=== PATIENT | male | born 1955 | race Caucasian/White ===

== ENCOUNTER → 2018-11-03 | Outpatient (CLI) | payer MEDICARE ==
[~2018-11-03] MED LIST: CETI10TA22 PO; FAMO40TA57 PO; IOHEXOL 300 MG/ML 100ML VIAL. IV ONE; LOVA20TA2 PO
--- NOTE | 2018-11-03 13:33 | KCIC ---
CT SOFT TISSUE NECK W/CONTRAST, CT HEAD WO/W CONTRAST Indication: Dysphagia. Infection at the roof of the mouth December 2017. Exposure: One or more of the following individualized dose reduction techniques were utilized for this examination: 1. Automated exposure control 2. Adjustment of the mA and/or kV according to patient size 3. Use of iterative reconstruction technique. Comparison: None are available. Contrast: None Head findings: Posterior fossa is unremarkable. No evidence of acute intracranial hemorrhage or abnormal extra-axial fluid collection. No evidence of mass effect or midline shift. Mild prominence of the extra-axial CSF space, greater in the frontal regions. Visualized orbits are unremarkable. Mild ethmoid mucosal thickening greater on the right. No acute calvarial abnormality. Impression:Negative for acute intracranial hemorrhage or mass effect. Neck findings: Visualized sinuses: Clear Visualized orbits: Unremarkable Vessels: Atherosclerotic calcifications. Grossly patent, distal vertebral arteries difficult to visualize in their entirety. Parotid glands: Unremarkable Submandibular glands: Unremarkable Pharynx/larynx: Patent and midline Tonsils: No appreciable enlargement. Parapharyngeal tissues: Symmetric and unremarkable Lymph nodes: No pathologic enlargement Thyroid: Symmetric Upper thorax: Dense granuloma right upper lobe. Soft tissues: Unremarkable Mandible/maxilla: Unremarkable Cervical spine: Mild degenerative changes of the visualized thoracolumbar spine. IMPRESSION: No evidence of acute abnormality. Electronically signed by: Edmundo Reyes MD (11/03/2018 1:29 PM) [id number]
== END | disposition home or self-care (01) ==
LOC: KCIC CT 10:10
PROVIDERS: ATTEND Otolaryngology
DX: M51.35 Other intervertebral disc degeneration, thoracolumbar region (principal); J84.10 Pulmonary fibrosis, unspecified; I70.0 Atherosclerosis of aorta; Z87.891 Personal history of nicotine dependence
CPT/HCPCS: 70470; 70491; 82565; Q9967

== ENCOUNTER → 2019-03-19 | Outpatient (CLI) | payer MEDICARE ==
[~2019-03-19] MED LIST changes: -IOHEXOL 300 MG/ML 100ML VIAL. IV ONE
--- NOTE | 2019-03-19 13:08 | KCIC ---
EXAM: Chest, 2 views; lumbar spine, 3 views. HISTORY: Pain. COMPARISON: None. FINDINGS: Chest: 2 views the chest are obtained. There is no infiltrate, pleural effusion or pneumothorax. The heart is normal in size. There is a calcified granuloma within the right upper lobe. Lumbar spine: 3 views lumbar spine are obtained. There is mild lumbar levoscoliosis centered at L2. There is minimal retrolisthesis of L4 and L5. There is degenerative endplate remodeling with disc space narrowing, osteophytosis and facet arthropathy at L5-S1. There is aortobiiliac atherosclerotic plaque. IMPRESSION: 1. Degenerative change involving the lumbar spine, primarily at L5-S1. 2. No acute osseous or pulmonary finding. Electronically signed by: Manda Diaz MD (03/19/2019 1:06 PM) [place] [id number]
== END | disposition home or self-care (01) ==
LOC: KCIC 12:06
PROVIDERS: ATTEND Nurse Practitioner Gerontology
DX: M47.817 Spondylosis without myelopathy or radiculopathy, lumbosacral region (principal); M48.07 Spinal stenosis, lumbosacral region; M41.86 Other forms of scoliosis, lumbar region; M43.16 Spondylolisthesis, lumbar region; J84.10 Pulmonary fibrosis, unspecified; I70.0 Atherosclerosis of aorta; M12.88 Other specific arthropathies, not elsewhere classified, other specified site
CPT/HCPCS: 71046; 72100

== ENCOUNTER → 2019-06-22 | Outpatient (CLI) | payer MEDICARE ==
--- NOTE | 2019-06-22 12:40 | KCIC ---
Examination: CT ABDOMEN PELVIS WO CONTRAST History: Left lower quadrant pain, history of diverticulitis Comparison/Correlation: 02/04/2007 CT abdomen and pelvis with IV and oral contrast Findings: Axial images of the abdomen and pelvis were obtained following oral contrast administration only. Sagittal and coronal reformatted images were provided. Visualized lung bases are clear. Right hepatic dome very small to characterize 0.7 cm diameter low-attenuation structure or possibly 2 adjacent smaller structures which appears represent a cyst noted. Calcified granulomas are present involving the spleen. Pancreas and adrenal glands are normal. Left adrenal gland nodule likely representing an adenoma measuring 1.4 cm diameter is stable. Gallbladder fossa is unremarkable. Multiple small, punctate bilateral renal calyceal calculi are present. Right extrarenal pelvis is evident. Left extrarenal pelvis is also noted. No radiopaque ureteral calculi or hydroureter. Urinary bladder is mostly decompressed. Slight thickening of the left perirenal fascia noted. Moderate quantity of stool in the colon noted. No inflammatory change about the cecum. No inflammatory changes about the colon identified. Calcific involvement of the abdominal aorta and iliac arteries noted. No enlarged abdominal or pelvic lymph nodes. No ascites or pelvic free fluid. Significant L5/S1 disc space narrowing is present. Sclerosis involving the right iliac bone at the sacroiliac joint which may represent old infarct or other benign process identified. Mild prostatomegaly is present with the prostate gland measuring 4.6 cm transverse. Impression: Multiple nonobstructive bilateral renal calculi. No inflammatory changes about the colon to suggest diverticulitis or other inflammatory process. PQRS Compliance Statement: One or more of the following individualized dose reduction techniques were utilized for this examination: 1. Automated exposure control 2. Adjustment of the mA and/or kV according to patient size 3. Use of iterative reconstruction technique Electronically signed by: Gerardo Jackson MD (06/22/2019 12:37 PM) [facility]
== END | disposition home or self-care (01) ==
LOC: KCIC CT 10:46
PROVIDERS: ATTEND Nurse Practitioner Gerontology
DX: N20.0 Calculus of kidney (principal); E27.9 Disorder of adrenal gland, unspecified; I70.0 Atherosclerosis of aorta; I70.8 Atherosclerosis of other arteries; N40.0 Benign prostatic hyperplasia without lower urinary tract symptoms; M48.07 Spinal stenosis, lumbosacral region
CPT/HCPCS: 74176

== ENCOUNTER → 2019-12-25 | Day surgery (SDC) | payer MEDICARE ==
[~2019-12-25] MED LIST changes: -CETI10TA22 PO; +CETI10TA24 PO; +CITA20TA9 PO; +DIAZEPAM10 MG PO; +DICL75TA PO; +FINA5TAB4 PO; +HYDROmorphone 2 MG/ML VIAL IV PRN; +IV RINGERS,LACTATED 1000ML 1,000 ML IV ONE; +IV RINGERS,LACTATED 1000ML 1,000 ML IV SCH; +LIDOCAINE 2% PF 5 ML VIAL. ONE; +MORPHINE SULFATE 2 MG/ML VIAL. IV PRN; +PHEN-443 PO; +PREG50CA PO; +PROCHLORPERAZINE 10 MG/2 ML VIAL. IV PRN; +PROPOFOL 20 ML IV ONE; +TAMS0.4C97 PO; +fentaNYL PF VIAL 100 MCG/2 ML VIAL IV PRN
[2019-12-25 08:30] VITALS: BP 134/68
== END | disposition home or self-care (01) ==
LOC: ENDOS 06:41
PROVIDERS: ATTEND Internal Medicine Gastroenterology
DX: R10.32 Left lower quadrant pain (principal); K64.0 First degree hemorrhoids; K57.30 Diverticulosis of large intestine without perforation or abscess without bleeding; D64.9 Anemia, unspecified; F41.9 Anxiety disorder, unspecified; F32.9 Major depressive disorder, single episode, unspecified; J43.9 Emphysema, unspecified; F15.90 Other stimulant use, unspecified, uncomplicated; F17.210 Nicotine dependence, cigarettes, uncomplicated; Z88.0 Allergy status to penicillin; Z72.89 Other problems related to lifestyle; Z88.8 Allergy status to other drugs, medicaments and biological substances
CPT/HCPCS: 45378; J2001; J2704

== ENCOUNTER → 2020-01-20 | Outpatient (CLI) | payer MEDICARE ==
[2019-12-25 08:30] VITALS: BP 134/68
[~2020-01-20] MED LIST changes: -HYDROmorphone 2 MG/ML VIAL IV PRN; -IV RINGERS,LACTATED 1000ML 1,000 ML IV ONE; -IV RINGERS,LACTATED 1000ML 1,000 ML IV SCH; -LIDOCAINE 2% PF 5 ML VIAL. ONE; -MORPHINE SULFATE 2 MG/ML VIAL. IV PRN; -PROCHLORPERAZINE 10 MG/2 ML VIAL. IV PRN; -PROPOFOL 20 ML IV ONE; -fentaNYL PF VIAL 100 MCG/2 ML VIAL IV PRN
--- NOTE | 2020-01-20 14:48 | KCIC ---
EXAM: MRI Pelvis without IV contrast INDICATION: Generalized pelvic pain. Occasional groin pain. TECHNIQUE: Multiplanar, multisequence MRI of the pelvis without IV contrast. COMPARISON: CT abdomen and pelvis with oral only contrast of 06/22/2019 FINDINGS: OSSEOUS STRUCTURES: No evidence of fracture, dislocation, or bone destruction. Marrow signal is within normal limits. Subchondral cystic change present on the right femoral head anteriorly.. ARTICULATIONS: Joint spaces appear maintained. No significant joint effusion. Note that the [id number] is not tailored to assess for labral pathology in detail. TENDONS & MUSCLES: Tendons and tendinous attachments are unremarkable. Muscles are normal without significant muscle edema or atrophy. SCIATIC NERVE: Unremarkable. REGION OF THE FEMORAL NERVE: Unremarkable. OTHER: No soft tissue mass or fluid collection. Visualized pelvic viscera are grossly unremarkable. IMPRESSION: Predominantly right mild hip degenerative changes but but otherwise no findings to explain pelvic pain. Electronically signed by: Rohini Velasco MD (01/20/2020 2:46 PM) [id number]
== END | disposition home or self-care (01) ==
LOC: KCIC MRI 09:13
PROVIDERS: ATTEND Internal Medicine Gastroenterology
DX: M16.11 Unilateral primary osteoarthritis, right hip (principal); R10.2 Pelvic and perineal pain
CPT/HCPCS: 72195

== ENCOUNTER → 2020-01-26 | Outpatient (CLI) | payer MEDICARE ==
[2019-12-25 08:30] VITALS: BP 134/68
[2020-01-26] MEDS: IOHEXOL 240 MG/ML 50ML VIAL. PO ONE (10:05)
[2020-01-26] MEDS: IOHEXOL 300 MG/ML 100ML VIAL. IV ONE (10:05)
--- NOTE | 2020-01-26 10:37 | KCIC ---
CT ABD PELV W/ORAL IV CONTRAST Indication: Lower quadrant pain, history of diverticulitis, constipation Technique: Postcontrast CT imaging was performed of the abdomen and pelvis, multiplanar reconstruction images submitted. Oral contrast was also given. One or more of the following individualized dose reduction techniques were utilized for this examination: 1. Automated exposure control 2. Adjustment of the mA and/or kV according to patient size 3. Use of iterative reconstruction technique. Comparison: June 22, 2019 and February 04, 2007 Findings: There are again a few small right lung base nodules, largest about 0.4 cm right lower lobe image 8 unchanged dating back to 2007 exam. There is no pleural fluid. Hypodense lesion of the right lobe of the liver image 16 about 1 cm in size is new since 2007 exam although internal density measurements more cystlike about 6 Hounsfield units. Another small hypodense lesion superiorly of the liver image 12 about 0.3 cm is smaller than 2007 exam. There are now some splenic granulomas. Gallbladder is present without obvious intraluminal abnormality by CT. There is again accessory spleen. There is again left adrenal nodule up to about 1.5 cm similar compared with 2007 exam. Both kidneys enhance. There is a similar degree of mild left pelviectasis. Mild right pelvocaliectasis has somewhat increased, no ureteral calculus identified. There is small about 0.2 cm superior right renal calculus as seen on the June 2018 exam, some other tiny renal calculi seen previously which may be difficult to visualize on this postcontrast exam. There is slightly lobulated contour of the bilateral kidneys. There is calcified plaque of abdominal aorta and iliac arteries, likely moderate stenosis of the left common iliac artery and likely moderate to severe stenosis of the right common iliac artery. The bowel is not significantly dilated. There is fairly prominent retained stool in the right and transverse colon, to lesser degree of descending and sigmoid colon. There is no free fluid or free air. There is appearance of more focal narrowing of a segment of the small bowel in the right superior pelvis coronal image 17. Bowel is not significantly dilated. Appendix is not confidently identified if still present, no significant pericecal inflammatory type change. There are several small nonspecific retroperitoneal and mesenteric lymph nodes as seen previously. IMPRESSION: 1. There is no significant inflammatory type change. Appearance of more focal narrowing of a segment of small bowel in the right pelvis could be due to peristalsis during exam although would be difficult to superior restriction dislocation. Appendix is not clearly identified so present. There is prominent retained stool greater of the right and transverse colon. 2. There is again small right renal calculus. There is increased mild right renal pelvocaliectasis, ureteral calculus not confidently identified by this exam. 3. There is now small hypodense lesion of the right lobe of the liver not seen on 2007 exam although density measurements more suggestive of cyst, other small hypodense lesion superiorly unchanged. 4. There is stable left adrenal nodule. 5. There are stenoses of the common iliac arteries greater on the right. Electronically signed by: Quinton Kidd MD (01/26/2020 10:34 AM) [id number]
== END ==
LOC: KCIC CT 08:22
PROVIDERS: ATTEND Internal Medicine Gastroenterology
DX: N20.0 Calculus of kidney (principal); K59.00 Constipation, unspecified; R63.4 Abnormal weight loss; I70.8 Atherosclerosis of other arteries; R91.8 Other nonspecific abnormal finding of lung field
CPT/HCPCS: 74177; 82565; Q9966; Q9967

== ENCOUNTER → 2020-04-04 | Outpatient (CLI) | payer MEDICARE ==
[2019-12-25 08:30] VITALS: BP 134/68
[~2020-04-04] MED LIST changes: +BARIUM SULFATE 60% 355 ML SUSP PO ONE; -PREG50CA PO; +PREG50CA91 PO
--- NOTE | 2020-04-05 11:27 | RAD ---
Small bowel follow through. 04.04.20 Indication: Abdominal discomfort. Constipation. Discussion: [employer] image demonstrates no acute abnormality. The patient was given oral barium without issue. Small bowel transit time was approximately 20-30 min. No abnormal dilation, stricture, or evidence of bowel thickening was seen. Fold patterns are within normal limit. Terminal ileum was grossly unremarkable. Fluoro time : 1.1 min DAP: 967.69 [id number] Impression: Normal small bowel series. Electronically signed by: Nhan Randolph MD (04/05/2020 11:23 AM) [id number]
== END | disposition home or self-care (01) ==
LOC: RAD 07:40
PROVIDERS: ATTEND Internal Medicine Gastroenterology
DX: K59.00 Constipation, unspecified (principal); R63.4 Abnormal weight loss
CPT/HCPCS: 74250

== ENCOUNTER → 2020-08-17 | Outpatient (CLI) | payer MEDICARE ==
[2019-12-25 08:30] VITALS: BP 134/68
[~2020-08-17] MED LIST changes: -BARIUM SULFATE 60% 355 ML SUSP PO ONE; -CETI10TA24 PO; +CETI10TA74 PO
--- NOTE | 2020-08-17 12:21 | KCIC ---
PROCEDURE: SHOULDER 2+V LEFT STUDY DATE: 08/17/2020 CLINICAL INDICATION / HISTORY: Reason: Chronic Left shoulder pain, decreased ROM / Spl. Instructions: / History: . TECHNIQUE: AP internal and external rotation views with a Y- view were obtained. COMPARISON: None FINDINGS: No fracture, dislocation or bone destruction is identified. There are no degenerative changes at the left AC joint. Calcifications are seen in relation to the rotator cuff insertion. IMPRESSION: Left shoulder calcific tendinopathy of the rotator cuff. No fracture or malalignment shown. Electronically signed by: Rohini Velasco MD (08/17/2020 12:18 PM) [id number]
== END | disposition home or self-care (01) ==
LOC: KCIC 10:21
PROVIDERS: ATTEND Internal Medicine Rheumatology
DX: M79.7 Fibromyalgia (principal); R20.2 Paresthesia of skin; M75.102 Unspecified rotator cuff tear or rupture of left shoulder, not specified as traumatic
CPT/HCPCS: 73030

== ENCOUNTER → 2020-09-06 | Outpatient (CLI) | payer MEDICARE ==
[2019-12-25 08:30] VITALS: BP 134/68
--- NOTE | 2020-09-06 16:17 | KCIC ---
AP view the pelvis and two-view study of the left hip Clinical indications: Left hip pain. FINDINGS: There is minimal degenerative spurring of the left femoral head with mild joint space narrowing and subchondral sclerosis of the left hip joint. Erosive arthropathy is seen. No acute fracture or dislocation or lytic process is evident. 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 Electronically signed by: Ramiro Zee MD (09/06/2020 4:14 PM) [id number]
--- NOTE | 2020-09-06 16:19 | KCIC ---
Three-view study lumbar spine Clinical indications: Low back pain. Left hip pain. FINDINGS: No compression fracture or discitis or lytic process or anterolisthesis is evident. There is mild degenerative disc space narrowing and degenerative endplate spurring at L4-5. There is moderate to severe degenerative disc space narrowing and moderate degenerative endplate spurring at L5-S1. Mild rotatory levoscoliosis is seen. The transverse processes are intact. IMPRESSION: Degenerative lumbar spondylosis. No acute compression fracture. Electronically signed by: Ramiro Zee MD (09/06/2020 4:16 PM) [id number]
== END ==
LOC: KCIC 10:20
PROVIDERS: ATTEND Internal Medicine Rheumatology
DX: M16.12 Unilateral primary osteoarthritis, left hip (principal); R10.2 Pelvic and perineal pain; M41.87 Other forms of scoliosis, lumbosacral region
CPT/HCPCS: 72100; 73502

== ENCOUNTER → 2020-10-11 | Outpatient (CLI) | payer MEDICARE ==
[2019-12-25 08:30] VITALS: BP 134/68
--- NOTE | 2020-10-11 11:01 | KCIC ---
2 views of left knee for chronic left knee pain. FINDINGS: There is no fracture, dislocation, or acute osseous abnormality identified. No significant degenerative changes. Vascular calcifications are seen in the distal SFA, popliteal, and proximal runoff vessels. IMPRESSION: 1. No acute osseous abnormality. 2. Mild focal atherosclerosis. Electronically signed by: Bulmaro Reed MD (10/11/2020 10:58 AM) [id number]
== END ==
LOC: KCIC 09:26
PROVIDERS: ATTEND Internal Medicine Rheumatology
DX: M25.562 Pain in left knee (principal); G89.29 Other chronic pain; I70.8 Atherosclerosis of other arteries
CPT/HCPCS: 73560

== ENCOUNTER → 2020-12-05 | Outpatient (CLI) | payer MEDICARE ==
[2019-12-25 08:30] VITALS: BP 134/68
--- NOTE | 2020-12-05 10:45 | KCIC ---
EXAM: Cervical spine, 3 views. HISTORY: Pain and stiffness. COMPARISON: None. FINDINGS: 3 views of the cervical spine are obtained. There is minimal retrolisthesis of C3 on C4 and C4 on C5 and C5 on C6. The vertebral bodies are normal in height and the disc spaces are preserved. There is mild multilevel facet arthropathy. There is calcified atherosclerotic plaque involving the c arotid bifurcations. There is a calcified granuloma within the right lung apex. IMPRESSION: 1. Mild multilevel degenerative change. 2. No acute osseous finding. Electronically signed by: Manda Diaz MD (12/05/2020 10:43 AM) [id number]
== END ==
LOC: KCIC 10:14
PROVIDERS: ATTEND Family Medicine
DX: M47.812 Spondylosis without myelopathy or radiculopathy, cervical region (principal); M43.12 Spondylolisthesis, cervical region; I65.23 Occlusion and stenosis of bilateral carotid arteries; J98.4 Other disorders of lung
CPT/HCPCS: 72040

== ENCOUNTER → 2020-12-13 | Outpatient (CLI) | payer MEDICARE ==
[2019-12-25 08:30] VITALS: BP 134/68
--- NOTE | 2020-12-13 09:51 | KCIC ---
MR LUMBAR SPINE WO -[id number] History: Reason: LOW BACK PAIN / Spl. Instructions: / History: Low back pain, left sided. Chronic. P revious surgery 1994. Technique: Multiplanar, multi sequential MR imaging was performed of the lumbar spine. Comparison: None Findings: Mild retrolisthesis L5 on S1. Normal vertebral body height. No fracture. Degenerative endplate edema L5-S1. Postoperative changes right L5 hemilaminectomy. Conus terminates at the normal location. No evidence of nerve root clumping. L1-L2: Small disc bulge. Mild facet arthropathy. No canal or neuroforaminal narrowing. L2-L3: Small disc bulge. Mild facet arthropathy. No canal narrowing. Slight left foraminal disc prot rusion. No neuroforaminal narrowing. L3-L4: Small disc bulge. Moderate facet arthropathy. No canal narrowing. Mild bilateral neuroforamin al narrowing. L4-L5: Disc bulge with central disc protrusion. Moderate facet arthropathy. Subarticular recess narr owing. No canal narrowing. Mild bilateral neuroforaminal narrowing. L5-S1: Retrolisthesis. Right hemilaminectomy. Disc bulge with right subarticular disc extrusion exte nding inferiorly (series 5 image 18). There is compression and displacement of the right descending S 1 nerve root within the subarticular recess. No canal narrowing. Mild bilateral neuroforaminal narrow ing. Impression: 1. Multilevel lumbar spondylosis most prominent L4-5 and L5-S1. 2. L5-S1 right subarticular disc extrusion compressing and displacing the right descending S1 nerve root. Correlate for radiculopathy. 3. L4-L5 central disc protrusion contributing to subarticular recess narrowing with slight abutment of the descending L5 nerve roots, left greater than right. Correlate for radiculopathy. Electronically signed by: Franco Wilder DO (12/13/2020 9:49 AM) [id number]
--- NOTE | 2020-12-13 09:58 | KCIC ---
Examination: MRI of the left shoulder without contrast HISTORY: History of left shoulder pain COMPARISON: None available TECHNIQUE: Multiplanar, multisequence MR imaging of the left shoulder performed. FINDINGS: The long head of the biceps tendon within the bicipital groove. The attachment of the long head the b iceps tendon to the superior labral anchor grossly appears intact. The attachment of subscapularis te ndon grossly appears intact. There is mild increased T2 signal identified about the supraspinatus men sukhjinder status tendon attachment likely mild tendinosis. There is a low intensity focus measuring 1.3 cm at the site of attachment of the supraspinatus tendon to the greater tuberosity likely calcium hydrox yapatite deposition due to calcific tendinosis/tendinitis. Mild increased T2 signal identified in the superior labrum could be a small labral tear. Small should er joint effusion is identified. The acromion is type II. The muscle bulk grossly appears unremarkable. Fat is present within the rota tor interval. Moderate degenerative changes acromioclavicular joint. IMPRESSION: 1. 1.3 cm low intensity focus identified at the site of attachment of the supraspinatus tendon to th e greater tuberosity likely calcium hydroxyapatite deposition due to calcific tendinosis/tendinitis. 2. Mild increased T2 signal identified in the superior labrum could be a small labral tear. 3. Small shoulder joint effusion. 4. Moderate degenerative changes acromioclavicular joint. Electronically signed by: Jun Mathias MD (12/13/2020 9:55 AM) [id number]
== END ==
LOC: KCIC MRI 07:49
PROVIDERS: ATTEND Internal Medicine Rheumatology
DX: M19.012 Primary osteoarthritis, left shoulder (principal); M25.412 Effusion, left shoulder; M47.817 Spondylosis without myelopathy or radiculopathy, lumbosacral region; M51.26 Other intervertebral disc displacement, lumbar region; M48.07 Spinal stenosis, lumbosacral region
CPT/HCPCS: 72148; 73221

== ENCOUNTER → 2020-12-19 | Outpatient (CLI) | payer MEDICARE ==
[2019-12-25 08:30] VITALS: BP 134/68
--- NOTE | 2020-12-19 08:58 | RAD ---
Ultrasound carotid Doppler 12/19/2020 6:57 AM INDICATION: Dysphagia COMPARISON: None available TECHNIQUE: Sonographic imaging of the carotid vasculature was performed utilizing grayscale, color Do ppler and spectral waveform analysis. FINDINGS: (All velocities are measured cm per second) Right carotid: Calcified and noncalcified atheromatous plaque is identified at the right carotid bifu rcation with at least 50 percent grayscale luminal narrowing. Peak systolic velocity: Proximal common carotid artery: 80 Distal common carotid artery: 73 Proximal internal carotid artery: 58 Middle internal carotid artery: 79 Distal internal carotid artery: 64 End-diastolic velocity: 23 External carotid artery: 108 Internal carotid artery/common carotid artery ratio: 0.72-0.98 Vertebral artery: Antegrade flow Left carotid: Calcified atheromatous plaques identified at the left carotid bifurcation with less avery n 50 percent grayscale narrowing. Peak systolic velocity: Proximal common carotid artery: 85 Distal common carotid artery: 83 Proximal internal carotid artery: 77 Middle internal carotid artery: 95 Distal internal carotid artery: 87 End-diastolic velocity: 21 External carotid artery: 96 Internal carotid artery/common carotid artery ratio: 0.85-1.1 Vertebral artery: Antegrade flow IMPRESSION: 1. There is at least 50 percent luminal stenosis involving the right proximal cervical internal carot id artery secondary to calcified and noncalcified atheromatous plaque. No hemodynamically significant stenosis involving the left internal carotid artery. 2. Antegrade flow is identified in the vertebral arteries. 3. Evaluation of the carotid vasculature and measurements for luminal stenosis was performed utilizin g NASCET criteria. Electronically signed by: Radha Goyal MD (12/19/2020 8:50 AM) [id number]
== END ==
LOC: US 06:50
PROVIDERS: ATTEND Family Medicine
DX: I65.23 Occlusion and stenosis of bilateral carotid arteries (principal); R13.10 Dysphagia, unspecified
CPT/HCPCS: 93880

== ENCOUNTER → 2021-01-25 | Outpatient (CLI) | payer MEDICARE ==
[2019-12-25 08:30] VITALS: BP 134/68
[~2021-01-25] MED LIST changes: +ACYC400T PO; +CHOL100013 PO; +CYCL10TA2 PO; +ESZO3TAB28 PO; +FLUT9.9S NS; +IOHEXOL 180 MG/ML 10 ML VIAL. ONE; +IPRA0.2S5 NEB; +LINZESS145 MCG PO; +LUBI8CAP4 PO; +OMEG-117 PO; +POLY17PO29 PO; +PREG-9 PO; +VENTOLIN HFA18 GM INH; +VITA1CAP5 PO; +[UNRECOGNIZED DRUG - OTHER]; +methylPREDNISolone ACETATE 40 MG/ML VIAL. ONE; +methylPREDNISolone ACETATE 80 MG/ML VIAL. ONE
--- NOTE | 2021-01-25 12:26 | PDOC1 ---
INITIAL PAIN CONSULT DATE OF SERVICE: DOS: DATE: 01/25/21 TIME: 12:16 CHIEF COMPLAINT: Chief Complaint: Low back and left lower extremity pain HISTORY OF PRESENT ILLNESS: 66-year-old male presents history of pain for many years per his report at least 10 years, pain in the low back and out worse over the past 1 year without any specific recent injury or accident that he is aware of pain increasing in the low back and left lower extremity rating the posterior gluteus lateral thigh lateral anterior thigh anteromedial thigh medial lower leg and into the top of the foot on the left side worse with walking standing specially with standing sometimes better with walking but only for about a mile and then the pain begins to return patient reports it generally does not awaken her from sleep at night feels better sitting or laying down does not impede his ability to walk significantly but it is starting to over the past 2 months or so with walking patient generally reports he walks from 5 to 7 miles a day has not been able to do this recently because of the pain patient is still walking though 1 to 2 miles a day patient reports is not use any assistive devices reports it does affect his bowel bladder control at times but he has no loss of continence just increased frequency. Patient has had chiropractic treatment in the past does exercise currently walking daily has epidural injections in 1995 no formal physical therapy currently but is doing some stretching on his own. Patient describes the pain in the low back and the leg on the left side is sharp and stabbing throbbing shooting in the leg tingling and aching in the back with tingling in the leg as well as the foot radiating intermittent intensity again worse with activity and standing. Patient rates his disability rating 0-10 10 being worst is a 6 to an 8 on a family home responsibilities self-care and life support activities 5-7 on occupation activity recreation is 8-10 and social activity 7-10; sexual behavior is 8-10 as well. Patient did have an MRI scan of the lumbar spine showing multilevel lumbar spondylosis most prominent at L4-5 and L5-S1 with right subarticular disc extrusion L5-S1 compressing and displacing the right descending S1 nerve root L4-5 showing central disc protrusion contributing subacute recess narrowing with slight abutment of the descending L5 nerve roots left greater than right. PAST MEDICAL HISTORY: PMH: Cigarette smoking, arthritis, arterial sclerosis PREVIOUS SURGERIES: Past Surgical Hx: Lumbar laminectomy 1994 CURRENT MEDICATIONS: Current Meds: Active Scripts Medications Dose Route/Sig Max Daily Dose Days Date Category Dose Instructions Acyclovir 400 Mg Tablet 1 Tab PO BID 01/25/21 Reported Amitiza (Lubiprostone) 8 Mcg Capsule 8 Mcg PO BID 01/25/21 Reported Linzess (Linaclotide) 145 Mcg Capsule 145 Mcg PO DAILY07 01/25/21 Reported Fish Oil 1,200 mg Softgel ([place]-3/Dha/Epa/Fish Oil) 1 Each Capsule.dr 1 Cap PO DAILY 30 01/25/21 Reported Vitamin D3 (Cholecalciferol (Vitamin D3)) 25 Mcg Capsule 25 Mcg PO DAILY 01/25/21 Reported B Complex With Vitamin C (Vitamin B Complex & Vit C No.3) 1 Each Capsule 1 Cap PO DAILYWBKFT 7 01/25/21 Reported Miralax (Polyethylene Glycol 3350) 17 Gm Powd.pack 1 Packet PO DAILY 2 01/25/21 Reported dissolve in water [rosenberg colon ] PRN PRN 01/25/21 Reported Flonase Allergy Relief (Fluticasone Propionate) 9.9 Ml [place].susp 2 Sprays NS DAILY 01/25/21 Reported Lunesta (Eszopiclone) 3 Mg Tablet 1 Tab PO PRN QHS PRN MDD 1 Tablet(s) 30 01/25/21 Reported Ipratropium [place] 0.2 Mg/1 Ml Solution 1 Vial NEB BID PRN 01/25/21 Reported Ventolin Hfa Inhaler (Albuterol Sulfate) 18 Gm Hfa.aer.ad 2 Puff INH Q4HRS 01/25/21 Reported Cyclobenzaprine Hcl 10 Mg Tablet 1 Tab PO QHS PRN 01/25/21 Reported Lyrica (Pregabalin) 75 Mg Capsule 1 Cap PO DAILY 01/25/21 Reported Diclofenac Sodium 75 Mg Tablet.dr 75 Mg PO DAILY 12/25/19 Reported Celexa (Citalopram Hydrobromide) 20 Mg Tablet 20 Mg PO DAILY 12/25/19 Reported Diazepam 10 Mg Tablet 10 Mg PO TID 12/25/19 Reported Flomax (Tamsulosin Hcl) 0.4 Mg Cap.er.24h 0.4 Mg PO DAILY 12/25/19 Reported Finasteride 5 Mg Tablet 5 Mg PO DAILY 12/25/19 Reported Pepcid (Famotidine) 40 Mg Tablet 40 Mg PO HS 11/03/18 Reported Zyrtec (Cetirizine Hcl) 10 Mg Tablet 1 Tab PO DAILY 11/03/18 Reported Lovastatin 20 Mg Tablet 1 Tab PO DAILY 11/03/18 Reported ALLERGIES; Allergies: Coded Allergies: Penicillins (Verified Allergy, Intermediate, 12/25/19) hydroquinone (Verified Allergy, Intermediate, 12/25/19) FAMILY HISTORY: Family Hx: Cancers, dementia, heart disease, arthritis, Alzheimer's SOCIAL HISTORY: Social Hx: Patient quit smoking about 3 months ago previously [id number] history plus, patient use alcohol occasionally once or twice a year does not use any illegal illicit or recreational drugs is single lives locally in [facility] and is currently retired, and is the primary caregiver for his mother. REVIEW OF SYSTEMS: ROS: Positive for those items mentioned in history of present illness, all systems are reviewed, otherwise negative ,and are complete full and well-documented on patient's chart. PHYSICAL EXAM: VS: Blood pressure is 133/66 pulse 50 respirations 18 temperature 97.8 F height is 5 feet 8 inches weight is 143 pounds PE: PHYSICAL EXAMINATION: GENERAL: The patient is awake, alert, oriented, appropriate, very pleasant demeanor HEENT: Shows normocephalic, atraumatic. Extraocular movements are intact and symmetrical. Oral cavity: Mucous membranes moist and pink. Dentition is intact. NECK: Shows anterior throat supple without palpable lymphadenopathy noted. Swallow reflex symmetrical. CHEST: Shows normal on inspection. Breath sounds are clear bilaterally no rales rhonchi or wheezes auscultated. HEART: Shows S1, S2 clear. No murmurs auscultated. ABDOMEN: Soft, nontender, nondistended, flat. No palpable organomegaly is noted. No rebound or guarding demonstrated. BACK: Shows spine grossly in the midline. Normal-appearing cervical lordotic curvature. There is slightly increased thoracic kyphosis, some minor flattening of the lumbar lordotic curvature. Patient has well-healed midline surgical scar in the lumbar distribution. Lumbar paraspinous muscles show symmetrical on inspection, on palpation shows some moderate tenderness diffusely throughout the upper, middle and lower distribution of the paraspinous muscles bilaterally and also into the lower thoracic paraspinous musculature, firm and tender, but without specific trigger points, without radiation of pain. The patient has good rotational motion of the lumbar spine, both laterally as well as extension and flexion without significant difficulty. No tenderness over the spinous processes, sacrum or sacroiliac regions. EXTREMITIES: Lower extremities show deep tendon reflexes 2+ in the patellar and tendo calcaneus tendons. Motor exam is 5 on a scale of 5 with right dorsiflexion, extension, quadriceps and hamstring flexion and 4/5 on the left. Peripheral pulses are 1+ posterior tibial. No peripheral edema is noted bilater ally. Lower extremities are warm and dry to touch, equal in color and appearance. Straight leg raise noted to be negative on the right, left side is positive at approximately 35 degrees but decreased with knee flexion.. Gaenslen's and Duarte's maneuvers are negative bilaterally. The patient is able to stand, stand on his toes,walks with a slight favoring gait favoring the left lower extremity but not use any assistive devices to ambulate such as canes or walkers. SKIN: Shows warm and dry, good turgor. No edema. No sores, rashes or bruising throughout. IMPRESSION: Impression: 66-year-old male with long history low back and left lower extremity pain worse over the past year in a radicular fashion. Lumbar MRI scan as noted Arthritis Arterial sclerosis History of cigarette smoking Plan: Options were discussed with the patient including conservative medical management physical therapy and interventional techniques. Patient would like to pursue interventional techniques. We discussed a lumbar epidural steroid injection using descriptions as well as anatomical models described procedure. Risks were discussed including but not limited to: Bleeding, infection, possibility of epidural hematoma and subsequent neurological compromise, dural puncture, headaches, spinal cord and/or nerve damage, side effects of steroid medication, and poor results regarding pain control. Patient understands and wished to proceed. Patient will return to the clinic in approximate 2 weeks for follow-up, was counseled as to return appointment activity level and side effects to be aware of. Procedure is lumbar epidural steroid injection under local anesthetic using sterile prep and drape at the L4-5 level using C-arm fluoroscopic guidance in both AP and lateral views medications injected is 120 mg Depo-Medrol + 10 mL preservative-free normal saline and 2 mL contrast- condition at discharge is stable patient tolerated procedure well had no complications. LOUISE ACOSTA MD Jan 25, 2021 12:25
== END | disposition home or self-care (01) ==
LOC: PNCL 09:21
PROVIDERS: ATTEND Anesthesiology
DX: M54.5 Low back pain (principal); M79.605 Pain in left leg; M19.90 Unspecified osteoarthritis, unspecified site; J44.9 Chronic obstructive pulmonary disease, unspecified; F41.9 Anxiety disorder, unspecified; F32.9 Major depressive disorder, single episode, unspecified; N40.0 Benign prostatic hyperplasia without lower urinary tract symptoms; Z87.891 Personal history of nicotine dependence; Z79.82 Long term (current) use of aspirin; Z79.899 Other long term (current) drug therapy; Z98.890 Other specified postprocedural states; Z82.49 Family history of ischemic heart disease and other diseases of the circulatory system
CPT/HCPCS: 62323; J1030; J1040; Q9965; 77002

== ENCOUNTER → 2021-01-31 | Outpatient (CLI) | payer MEDICARE ==
[2019-12-25 08:30] VITALS: BP 134/68
[~2021-01-31] MED LIST changes: -IOHEXOL 180 MG/ML 10 ML VIAL. ONE; +IOHEXOL 300 MG/ML 100ML VIAL. IV ONE; -methylPREDNISolone ACETATE 40 MG/ML VIAL. ONE; -methylPREDNISolone ACETATE 80 MG/ML VIAL. ONE
--- NOTE | 2021-01-31 14:25 | KCIC ---
CT scan of the neck and chest both with IV contrast compared to CT of the soft tissues the neck dated November 022017 for history of worsening dysphagia. TECHNIQUE: Contiguous axial CT images are obtained through the neck as well as through the chest. Sag ittal and coronal reformations of both the neck and chest are evaluated. IV contrast was administered . FINDINGS: NECK: Visualized paranasal sinuses and mastoid air cells are clear. Mild atherosclerosis of both matthews tid arteries. The bilateral parotid glands, shop mechanic spaces, parapharyngeal spaces, prevertebral sp elijah, and carotid spaces are all normal. No suspicious adenopathy is seen in any distribution. No flash s abnormalities of the posterior cervical soft tissues. No abnormalities of the nasopharynx, orophary nx, or laryngeal pharynx. Mild degenerative changes are seen at C5-6, with no evidence of bony centra l or neuroforaminal stenosis. Esophagus is normal in course and caliber throughout its distribution. Thyroid is normal. CHEST: There are emphysematous changes in the apices. Dense calcified granuloma seen in the right derrick g apex. In the right lower lobe on series 3, axial image 197, there is a 5 mm pleural-based nodule ad jacent to the major fissure. More caudally on axial image #203, there is a 4 mm nodule also inferior to the fissure, and an additional 4 mm nodule in subpleural location more posteriorly. In the context of known antecedent granulomatous disease, these are most likely benign granulomas, however given hi s high risk profile this patient with emphysema, a single follow-up CT scan in 12 months is recommend ed according to Fleischner Society guidelines. No other focal parenchymal abnormalities involving the lungs. No significant morphologic abnormalities are visualized upper abdominal organs.No suspicious mediastinal, hilar, or axillary lymphadenopathy. 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 IMPRESSION: 1. No acute abnormalities of the soft tissues the neck. 2. COPD. 3. Multiple small pulmonary nodules seen in the right lung base, with no priors to assess stability. Patient has a single calcified right apical granuloma, and these are almost certainly benign granulom as themselves. However given his high risk profile with emphysema, a single follow-up CT scan [facility] is recommended to ensure stability. PQRS Compliance Statement: One or more of the following individualized dose reduction techniques were utilized for this examinat ion: 1. Automated exposure control 2. Adjustment of the mA and/or kV according to patient size 3. Use of iterative reconstruction technique Fleischner Society recommendations (Radiology 2017): SOLID NODULES Solitary solid nodule <6 mm - low-risk patient: no routine follow-up required - high-risk patient: optional CT at 12 months (particularly with suspicious nodule morphology and/or upper lobe location) Solitary solid nodule 6-8 mm - low-risk patient: CT at 6-12 months, then consider CT at 18-24 months - high risk patient: CT at 6-12 months, then if persistent CT at 18-24 months Solitary solid nodule >8 mm - consider CT at 3 months, PET/CT, or tissue sampling Multiple solid nodules <6 mm - low-risk patient: no routine follow-up required - high-risk patient: optional CT at 12 months Multiple solid nodules > or = 6 mm - low-risk patient: CT at 3-6 months, then consider CT at 18-24 months - high risk patient: CT at 3-6 months, then if persistent CT at 18-24 months SUBSOLID NODULES Solitary ground glass nodule <6 mm - no routine follow-up required Solitary ground glass nodule > or = 6 mm - CT at 6-12 months, then if persistent CT every 2 years until 5 years Solitary part solid nodule > or = 6mm - CT at 3-4 months, the if persistent and solid component remains <6 mm, annual CT until 5 years Multiple subsolid nodules <6 mm - CT at 3-6 months, then if stable consider CT at 2 and 4 years in high risk patients Multiple subsolid nodules > or = 6 mm - CT at 3-6 months, then subsequent management based on the most suspicious nodule(s) Electronically signed by: Bulmaro Reed MD (01/31/2021 2:23 PM) [id number]
== END ==
LOC: KCIC CT 09:50
PROVIDERS: ATTEND Internal Medicine Gastroenterology
DX: J43.9 Emphysema, unspecified (principal); R91.1 Solitary pulmonary nodule
CPT/HCPCS: 82565; Q9967

== ENCOUNTER → 2021-02-15 | Day surgery (SDC) | payer MEDICARE ==
[~2021-02-15] MED LIST changes: -IOHEXOL 300 MG/ML 100ML VIAL. IV ONE; +IV RINGERS,LACTATED 1000ML 1,000 ML IV SCH; +PROPOFOL 10 MG/ML (20ML) VIAL. IV ONE
[2021-02-15 09:23] VITALS: BP 151/72
== END | disposition home or self-care (01) ==
LOC: ENDOS 07:25
PROVIDERS: ATTEND Internal Medicine Gastroenterology
DX: R13.10 Dysphagia, unspecified (principal); Z20.822 Contact with and (suspected) exposure to COVID-19; J44.9 Chronic obstructive pulmonary disease, unspecified; K21.9 Gastro-esophageal reflux disease without esophagitis; N40.0 Benign prostatic hyperplasia without lower urinary tract symptoms; F41.9 Anxiety disorder, unspecified; F32.9 Major depressive disorder, single episode, unspecified; M19.90 Unspecified osteoarthritis, unspecified site; Z87.891 Personal history of nicotine dependence; Z79.899 Other long term (current) drug therapy; Z98.890 Other specified postprocedural states; Z88.0 Allergy status to penicillin; Z88.8 Allergy status to other drugs, medicaments and biological substances
CPT/HCPCS: 43450; 87426; J2704

== ENCOUNTER → 2021-02-22 | Outpatient (CLI) | payer MEDICARE ==
[2021-02-15 09:23] VITALS: BP 151/72
[~2021-02-22] MED LIST changes: +BUPIVACAINE MPF 0.25% 10 ML VIAL. ONE; +IOHEXOL 180 MG/ML 10 ML VIAL. ONE; -IV RINGERS,LACTATED 1000ML 1,000 ML IV SCH; -PROPOFOL 10 MG/ML (20ML) VIAL. IV ONE; +methylPREDNISolone ACETATE 40 MG/ML VIAL. ONE; +methylPREDNISolone ACETATE 80 MG/ML VIAL. ONE
--- NOTE | 2021-02-22 10:13 | PDOC4 ---
PROCEDURE Procedure Patient was consented for left L4-5 transforaminal epidural injection. Risks were discussed including but not limited to: Bleeding, infection, possibility of epidural hematoma and subsequent neurological compromise, dural puncture, headaches, spinal cord and/or nerve damage, side effects of steroid medication, potential injection to the vertebral artery at that level and permanent ischemic damage, and poor results regarding pain control. Patient understands and wished to proceed. Under sterile prep and drape patient was placed in prone position using C-arm fluoroscopic guidance to identify the L4-5 distribution oblique and slightly cephalad angled C arm. The left L4-5 target was identified and using lidocaine for anesthetizing the skin 22-gauge Annie pencil point needle was then used to enter the skin and into the subcutaneous tissues using direct C-arm fluoroscopic guidance to guide the needle into the transforaminal aspect of the left L4-5 vertebrae this was confirmed with lateral views showing the needle tip in the superior aspect of the paravertebral region. Aspiration was noted to be negative, -1.5 cc of contrast was then injected with good spread both medially into the epidural space as well as laterally along the nerve root without uptake and without distribution and uptake on digital subtraction. At this time, a solution containing 2 cc of 0.25% bupivacaine and 80 mg of Depo-Medrol was then injected. Needle was withdrawn and sterile bandage was applied. Patient tolerated procedure well had no immediate complications LOUISE ACOSTA MD Feb 22, 2021 10:13
--- NOTE | 2021-02-22 10:13 | PDOC ---
Progress Note - Pain Clinic Date of Service: DOS: DATE: 02/22/21 TIME: 10:10 Diagnosis: Dx: Lumbar radiculopathy with lumbar degenerative disease lumbar spondylosis and post lumbar laminectomy syndrome History or Present Illness: HPI: 66-year-old male returns follow-up status post lumbar epidural steroid injection x1. Patient reports no significant improvement in pain still some significant pain in the low back and left lower extremity mostly in the left posterior gluteus lateral thigh anterior thigh medial thigh medial lower leg on the left side. Patient reports is worse with walking standing changing positions better with sitting or lying down generally is not awakening from sleep at night patient reports is an 8 on scale 10 is worse over the past week 7 on average 7 its least is a 7 today patient ports tingling and cramping stabbing in the back and leg sharp and shooting in the leg on the left side radiating and constant with activity patient reports no new motor or sensory deficits no bowel or bladder incontinence. Physical Exam: VS: Pressure is 112/67 pulse 51 respirations 16 temperature 98.2 F weight is 141 po unds PE: PHYSICAL EXAMINATION: GENERAL: The patient is awake, alert, oriented, appropriate, very pleasant demeanor HEENT: Shows normocephalic, atraumatic. Extraocular movements are intact and symmetrical. Oral cavity: Mucous membranes moist and pink. Dentition is intact. NECK: Shows anterior throat supple without palpable lymphadenopathy noted. Swallow reflex symmetrical. CHEST: Shows normal on inspection. Breath sounds are clear bilaterally. HEART: Shows S1, S2 clear. No murmurs auscultated. ABDOMEN: Soft, nontender, nondistended, obese. No palpable organomegaly is noted. BACK: Shows spine grossly in the midline. Normal-appearing cervical lordotic curvature. There is slightly increased thoracic kyphosis, some minor flattening of the lumbar lordotic curvature. Lumbar paraspinous muscles show symmetrical on inspection, on palpation shows some moderate tenderness diffusely throughout the upper, middle and lower distribution of the paraspinous muscles without specific trigger points, without radiation of pain. The patient has good rotational motion of the lumbar spine, both laterally as well as extension and flexion without significant difficulty. No tenderness over the spinous processes, sacrum or sacroiliac regions. EXTREMITIES: Lower extremities show deep tendon reflexes 2+ in the patellar and tendo calcaneus tendons. Motor exam is 5 on a scale of 5 with right dorsiflexion, extension, quadriceps and hamstring flexion and 4/5 on the left. Peripheral pulses are 1+ posterior tibial. No peripheral edema is noted bilaterally. Lower extremities are warm and dry to touch, equal in color and appearance. SKIN: Shows warm and dry, good turgor. No edema. No sores, rashes or bruising throughout. Procedure: Procedure: Options were discussed with the patient. Patient chart reviews his current medication regimen updated current review of systems updated today as well. We will proceed with a left L4-5 transforaminal epidural injection today with fluo roscopic guidance. Risks were discussed including but not limited to: Bleeding, infection, possibility of epidural hematoma and subsequent neurological compromise, dural puncture, headaches, spinal cord and/or nerve damage, potential injection of the vertebral artery at that level and permanent ischemic damage, side effects of steroid medication, and poor results regarding pain co ntrol. Patient understands and wished to proceed. Medication Injected: Med Injected: Under sterile prep and drape patient was placed in prone position using C-arm fluoroscopic guidance to identify the L4-5 distribution oblique and slightly cephalad angled C arm. The left L4-5 target was identified and using lidocaine for anesthetizing the skin 22-gauge Annie pencil point needle was then used to enter the skin and into the subcutaneous tissues using direct C-arm fluorosc opic guidance to guide the needle into the transforaminal aspect of the left L4- 5 vertebrae this was confirmed with lateral views showing the needle tip in the superior aspect of the paravertebral region. Aspiration was noted to be negative, -1.5 cc of contrast was then injected with good spread both medially into the epidural space as well as laterally along the nerve root without uptake and without distribution and uptake on digital subtraction. At this time, a solution containing 2 cc of 0.25% bupivacaine and 80 mg of Depo-Medrol was then injected. Needle was withdrawn and sterile bandage was applied. Patient tolerated procedure well had no immediate complications Condition at Discharge: Condition at Discharge: Condition at discharge stable, patient alert procedure well and had no complications. LOUISE ACOSTA MD Feb 22, 2021 10:12
== END | disposition home or self-care (01) ==
LOC: PNCL 09:08
PROVIDERS: ATTEND Anesthesiology
DX: M51.16 Intervertebral disc disorders with radiculopathy, lumbar region (principal); M47.26 Other spondylosis with radiculopathy, lumbar region; M96.1 Postlaminectomy syndrome, not elsewhere classified; J44.9 Chronic obstructive pulmonary disease, unspecified; K21.9 Gastro-esophageal reflux disease without esophagitis; M19.90 Unspecified osteoarthritis, unspecified site; F41.9 Anxiety disorder, unspecified; F32.9 Major depressive disorder, single episode, unspecified; Z87.891 Personal history of nicotine dependence; Z79.899 Other long term (current) drug therapy; Z98.890 Other specified postprocedural states; Z72.89 Other problems related to lifestyle; Z88.0 Allergy status to penicillin; Z88.8 Allergy status to other drugs, medicaments and biological substances
CPT/HCPCS: 64483; J1040; J3490; Q9965; J1030

== ENCOUNTER → 2021-03-08 | Outpatient (CLI) | payer MEDICARE ==
[2021-02-15 09:23] VITALS: BP 151/72
[~2021-03-08] MED LIST changes: +ACYC-12 PO; -ACYC400T PO; -BUPIVACAINE MPF 0.25% 10 ML VIAL. ONE; -IOHEXOL 180 MG/ML 10 ML VIAL. ONE; -methylPREDNISolone ACETATE 40 MG/ML VIAL. ONE; -methylPREDNISolone ACETATE 80 MG/ML VIAL. ONE
--- NOTE | 2021-03-08 10:03 | PDOC ---
Progress Note - Pain Clinic Date of Service: DOS: DATE: 03/08/21 TIME: 09:59 Diagnosis: Dx: Lumbar radiculopathy with lumbar degenerative disease lumbar spondylosis and lumbar postlaminectomy syndrome History or Present Illness: HPI: 66-year-old male returns for follow-up status post left L4-5 transforaminal injection. Patient reports he is doing much better with increased ability to walk stand climb stairs sleeping better at night reports still some pain in the left lower extremity radiating as it was previously posterior gluteus posterior lateral thigh anterior medial thigh much improved. Patient is very pleased with his progress thus far. Patient reports does not awaken from sleep at night and increase his distance walking doing household activities travelling with greater ease as well. Patient reports no new motor or sensory deficits no new bowel or bladder incontinence patient describes pain as dull and tight shooting at times in the leg on the left side tingling and cramping in the back with radiating pain is on and off in intensity. Patient reports no other complaints. Physical Exam: VS: Blood pressure is 142/72 pulse 54 respirations 16 temperature 97.5 F weight is 137 pounds PE: PHYSICAL EXAMINATION: GENERAL: The patient is awake, alert, oriented, appropriate, very pleasant demeanor HEENT: Shows normocephalic, atraumatic. Extraocular movements are intact and symmetrical. Oral cavity: Mucous membranes moist and pink. Dentition is intact. NECK: Shows anterior throat supple without palpable lymphadenopathy noted. Swallow reflex symmetrical. CHEST: Shows normal on inspection. Breath sounds are clear bilaterally, no rales or rhonchi. HEART: Shows S1, S2 clear. No murmurs auscultated. ABDOMEN: Soft, nontender, nondistended. No palpable organomegaly is noted. No rebound or guarding demonstrated. BACK: Shows spine grossly in the midline. Normal-appearing cervical lordotic curvature. There is slightly increased thoracic kyphosis, some minor flattening of the lumbar lordotic curvature. Lumbar paraspinous muscles show symmetrical on inspection, on palpation shows some moderate tenderness diffusely throughout the upper, middle and lower distribution of the paraspinous muscles without specific trigger points, without radiation of pain. The patient has good rotational motion of the lumbar spine, both laterally as well as extension and flexion without significant difficulty. No tenderness over the spinous processes, sacrum or sacroiliac regions. EXTREMITIES: Lower extremities show deep tendon reflexes 2+ in the patellar and tendo calcaneus tendons. Motor exam is 5 on a scale of 5 with right dorsiflexion, extension, quadriceps and hamstring flexion and 4/5 on the left. Peripheral pulses are 1+ posterior tibial. No peripheral edema is noted bilaterally. Lower extremities are warm and dry to touch, equal in color and appearance. SKIN: Shows warm and dry, good turgor. No edema. No sores, rashes or bruising throughout. Procedure: Procedure: Options were discussed with patient. Patient chart reviews his current medication regimen updated current review of systems updated today as well. Patient is doing much better would like to wait for any further interventional techniques at this time. She was encouraged to maintain activity stretching strength exercises as well as walking daily as he has been doing. Patient return to clinic in approximately 3 to 4 weeks for reassessment or sooner if pain returns. Medication Injected: Med Injected: None Condition at Discharge: Condition at Discharge: Condition at discharge is stable. LOUISE ACOSTA MD Mar 08, 2021 10:03
== END | disposition home or self-care (01) ==
LOC: PNCL 09:23
PROVIDERS: ATTEND Anesthesiology
DX: M51.16 Intervertebral disc disorders with radiculopathy, lumbar region (principal); M47.26 Other spondylosis with radiculopathy, lumbar region; M96.1 Postlaminectomy syndrome, not elsewhere classified; J44.9 Chronic obstructive pulmonary disease, unspecified; K21.9 Gastro-esophageal reflux disease without esophagitis; N40.0 Benign prostatic hyperplasia without lower urinary tract symptoms; M19.90 Unspecified osteoarthritis, unspecified site; F41.9 Anxiety disorder, unspecified; F32.9 Major depressive disorder, single episode, unspecified; Z87.891 Personal history of nicotine dependence; Z79.899 Other long term (current) drug therapy; Z98.890 Other specified postprocedural states; Z88.0 Allergy status to penicillin; Z88.8 Allergy status to other drugs, medicaments and biological substances
CPT/HCPCS: G0463

== ENCOUNTER → 2021-07-25 | Outpatient (CLI) | payer MEDICARE ==
[2021-02-15 09:23] VITALS: BP 151/72
[~2021-07-25] MED LIST changes: +IOHEXOL 240 MG/ML 50ML VIAL. PO ONE; +IOHEXOL 300 MG/ML 100ML VIAL. IV ONE
--- NOTE | 2021-07-25 09:11 | RAD ---
EXAMINATION: US ABDOMEN COMPLETE INDICATION: 66 years, Male, abdominal pain, evaluate for abdominal aortic aneurysm. COMPARISON: CT abdomen and pelvis dated 01/26/2020 TECHNIQUE: Grayscale, color Doppler and limited spectral Doppler images of the abdomen were obtained. FINDINGS: LIVER: SIZE (LENGTH): 14 cm. ECHOGENICITY: Normal PARENCHYMA: Homogeneous echotexture. No discrete focal lesion. INTRAHEPATIC BILE DUCTS: Nondilated. PORTAL VEIN: Patent with normal hepatopedal flow. GALLBLADDER: GALLBLADDER WALL THICKNESS: 1.1 mm MORPHOLOGY: Gallbladder hydrops. No wall hyperemia or pericholecystic free fluid. LUMEN: Normal. COMMON BILE DUCT DIAMETER: 2.3 mm RIGHT KIDNEY: MEASURES: 10.8 cm in length. MORPHOLOGY/PARENCHYMA: Normal corticomedullary differentiation with no shadowing calculus or discrete masses. Previously seen punctate nonobstructing calculus is not appreciated on the current exam. COLLECTING SYSTEM: No hydronephrosis. LEFT KIDNEY: MEASURES: 11.0 cm in length MORPHOLOGY/PARENCHYMA: Normal corticomedullary differentiation with no shadowing calculus or discrete masses. COLLECTING SYSTEM: No hydronephrosis. INCOMPLETELY EVALUATED SPLEEN: SIZE (LENGTH): 10.6 cm PARENCHYMA: Unremarkable. PANCREAS: Not well-visualized. OTHER: RETROPERITONEUM, INFERIOR VENA CAVA: Normal caliber. FLUID:No free fluid. ABDOMINAL AORTA DIAMETER: Proximal: 2.4 x 2.4 cm. MID: 2.0 x 1.8 cm Distal: 2.0 x 2.0 cm IMPRESSION: 1. No acute sonographic findings in the upper abdomen. 2. No evidence of abdominal aortic aneurysm. Electronically signed by: Margie Yin MD (07/25/2021 9:08 AM) [id number]
--- NOTE | 2021-07-25 10:29 | RAD ---
EXAMINATION: CT abdomen and pelvis with IV contrast. INDICATION:66 years, Male, abdominal and rectal pain, evaluate for abdominal aortic aneurysm. TECHNIQUE: Axial CT images of the abdomen and pelvis were obtained. Coronal and sagittal reformatted performed. COMPARISON: 01/26/2020 and multiple priors. Exposure: One or more of the following individualized dose reduction techniques were utilized for thi s examination: 1. Automated exposure control 2. Adjustment of the mA and/or kV according to patient size 3. Use of iterative reconstruction technique. FINDINGS: LOWER CHEST: Few scattered solid pulmonary nodules in both lower lobes with the largest measures 4 mm (series 2 im age 87), unchanged since June 2019. Dependent subsegmental atelectasis in bibasilar lungs. ABDOMEN/PELVIS: Normal size and morphology of the liver with homogeneous enhancement. Unchanged simple appearing cyst in the anterior right hepatic lobe measures 0.9 cm. Subcentimeter hypodensity in the anterior right hepatic lobe, too small to characterize, statistically representing cyst. No suspicious focal hepatic lesion. Gallbladder, and biliary ducts are unremarkable. Calcified granulomas in the spleen. Mildly atrophic pancreatic parenchyma. Unchanged 1.7 cm left adrenal nodule since multiple prior exam, most likely benign adenoma. Right adrenal gland is unremarkable. No hydronephrosis in either kidney. Punct ate nonobstructing bilateral nephrolithiasis measuring up to 3 mm. Subcentimeter hypodensities in bot h renal cortices, too small to characterize. Multifocal right renal cortical scarring/thinning. No bowel obstruction or wall thickening. Moderate to large amount of stool throughout the colon. No a bdominal lymphadenopathy by size criteria. No pneumoperitoneum or ascites. Normal caliber abdominal a jeanette, demonstrates moderate atherosclerotic calcifications without significant narrowing. Abdominal a jeanette measures 2.3 cm in maximum diameter. Mesenteric arteries and portal vein are patent. No pneumope ritoneum or ascites. Unremarkable urinary bladder and prostate. No suspicious pelvic masses. MUSCULOSKELETAL: No acute osseous process or suspicious lesion. Severe degenerative changes at L5-S1. Unchanged ill-de fined sclerosis in the right iliac bone. IMPRESSION: 1. No acute abnormality in the abdomen or pelvis, specifically no abdominal aortic aneurysm. 2. Moderate to large amount of colonic stool burden. 3. Other chronic/incidental findings, as described above. Electronically signed by: Margie Yin MD (07/25/2021 10:27 AM) [id number]
== END ==
LOC: US 10:18
PROVIDERS: ATTEND Physician Assistant
DX: N20.0 Calculus of kidney (principal); K82.1 Hydrops of gallbladder; G47.8 Other sleep disorders; N28.89 Other specified disorders of kidney and ureter; R91.8 Other nonspecific abnormal finding of lung field; J98.11 Atelectasis
CPT/HCPCS: 74177; 76700; Q9966; Q9967

== ENCOUNTER → 2021-08-09 | Outpatient (CLI) | payer MEDICARE ==
[2021-02-15 09:23] VITALS: BP 151/72
[~2021-08-09] MED LIST changes: -IOHEXOL 240 MG/ML 50ML VIAL. PO ONE; -IOHEXOL 300 MG/ML 100ML VIAL. IV ONE; +[UNRECOGNIZED DRUG - OTHER] PO ONE
--- NOTE | 2021-08-14 17:52 | KCIC ---
DG SMALL BOWEL FOLLOW THROUGH History: Abdominal pain, rectal pain. Comparison: None. Technique: Sitzmarks pill taken at 0820 hours on 08/09/2021. Supine abdomen radiograph taken on day 5. Findings: Bowel gas pattern: Nonobstructive bowel gas pattern with prominent colonic stool. Free air: No supine evidence. Abnormal calcifications: A few pelvic phleboliths. Bones: Degenerative changes at L5-S1. Other: No radiopaque Sitzmarks identified. Impression: 1. No radiopaque Sitzmarks identified on day 5 after capsule ingestion. 2. Prominent colonic stool burden. Electronically signed by: Andrea Madrigal MD (08/14/2021 5:49 PM) [id number]
== END ==
LOC: KCIC 08:15
PROVIDERS: ATTEND Physician Assistant
DX: R10.9 Unspecified abdominal pain (principal); K62.89 Other specified diseases of anus and rectum; K56.41 Fecal impaction
CPT/HCPCS: 74250

== ENCOUNTER → 2021-11-02 | Outpatient (CLI) | payer MEDICARE ==
[2021-02-15 09:23] VITALS: BP 151/72
[~2021-11-02] MED LIST changes: +CYCL10TA19 PO; -CYCL10TA2 PO; +IOHEXOL 180 MG/ML 10 ML VIAL. ONE; -[UNRECOGNIZED DRUG - OTHER] PO ONE; +methylPREDNISolone ACETATE 40 MG/ML VIAL. ONE; +methylPREDNISolone ACETATE 80 MG/ML VIAL. ONE
--- NOTE | 2021-11-02 09:24 | PDOC ---
Progress Note - Pain Clinic Date of Service: DOS: DATE: 11/02/21 TIME: 09:20 Diagnosis: Dx: Cervical radiculopathy with cervical degenerative disc disease Lumbar radiculopathy lumbar degenerative disease lumbar postlaminectomy syndrome and lumbar spondylosis History or Present Illness: HPI: 66-year-old male returns for follow-up last seen March 08, 2012 status post lumbar transforaminal injection with good results patient reports about 70% improvement in his chief complaint today however is neck and bilateral shoulder pain worse on the right than the left present for about 3 months not the result of any specific injury or accident that he is aware of but has significant pain in the base the neck rating the right and left upper extremities shoulders into the forearm on the right into the triceps and elbow region as well as in the hand patient reports is radiating constant severe tingling burning cramping stabbing aching in the back as well as the neck dull and tight in the back and the neck worse with activity worse with driving using his right hand with repetitive motions reaching over his head with his right hand as well as driving and repetitive motions with weightbearing and reaching forward patient reports is 9-10 on scale 10 is average nine its least and is a nine today patient reports no loss of motor function but significant pain with mobility limitation and fatigability of the right upper extremity with activity. Physical Exam: VS: Blood pressure is 133/75 pulse 56 respirations 18 temperature is 98.0 F height is 5 feet 8 inches weight is 135 pounds PE: PHYSICAL EXAMINATION: GENERAL: The patient is awake, alert, oriented, appropriate, very pleasant in demeanor HEENT: Shows normocephalic, atraumatic. Extraocular movements are intact and symmetrical. Oral cavity: Mucous membranes moist and pink. NECK: Shows anterior throat supple without palpable lymphadenopathy noted. Swallow reflex symmetrical. CHEST: Shows normal on inspection. Breath sounds are clear bilaterally, distant but no rales rhonchi or wheezes auscultated. HEART: Shows S1, S2 clear. No murmurs auscultated. ABDOMEN: Soft, nontender, nondistended. No palpable organomegaly is noted. No rebound or guarding demonstrated. BACK: Shows spine grossly in the midline. Normal-appearing cervical lordotic curvature. Cervical paraspinous muscles show symmetrical inspection on palpation some moderate tenderness diffusely throughout the upper middle lower decrease the paraspinous muscle as well as into the superior medial trapezius more on the right than left with significant tenderness in the myofascial distribution of the trapezius both the right and left with significant tenderness with even light palpation. Patient cervical spine shows good rotation while guarded full rotation past 45 degrees right and left with full extension as well as full forward flexion without significant patient with significant guarding and pain reported with all rotation of motion. There is slightly increased thoracic kyphosis, some minor flattening of the lumbar lordotic curvature. Lumbar paraspinous muscles show symmetrical on inspection, on palpation shows some moderate tenderness diffusely throughout the upper, middle and lower distribution of the paraspinous muscles without specific trigger points, without radiation of pain. The patient has good rotational motion of the lumbar spine, both laterally as well as extension and flexion without significant difficulty. No tenderness over the spinous processes, sacrum or sacroiliac regions. EXTREMITIES: Lower extremities show deep tendon reflexes 2+ in the patellar and tendo calcaneus tendons. Motor exam is five on a scale of 5 with right dorsiflexion, extension, quadriceps and hamstring flexion and four/5 on the left. Peripheral pulses are 1+ posterior tibial. No peripheral edema is noted bilaterally. Lower extremities are warm and dry to touch, equal in color and appearance. Upper extremity show deep tendon reflexes 2+ in the bicep tricep tendons motor exam is positive for scale five with right dragline operator helper strength bicep tricep flexion 5 out of 5 on the left peripheral pulses are 2+ radial shoulder shrug strong and intact with significant pain however with resistance but no loss of strength. SKIN: Shows warm and dry, good turgor. No edema. No sores, rashes or bruising throughout. Procedure: Procedure: Options were discussed with patient. Patient chart was reviewed his current medication regimen updated current review of systems updated today as well. We will proceed with a cervical epidural steroid injection today with fluoroscopic guidance. Risks were discussed including but not limited to: Bleeding, infection, possibility of epidural hematoma and subsequent neurological compromise, dural puncture, headaches, spinal cord and/or nerve damage, side effects of steroid medication, and poor results regarding pain control. Patient understands and wished to proceed. Patient return to clinic in approximate 2 weeks for follow-up, was counseled as return appointment, activity level, and side effects to be aware of. Medication Injected: Med Injected: Procedure cervical epidural steroid injection at the C6-7 level, using local anesthetic under sterile prep and drape using C-arm fluoroscopic guidance under local anesthesia medications injected ;120 mg Depo-Medrol +5 mL normal saline and 2 mL contrast; condition at discharge is stable patient tolerated procedure well. and had no complications Condition at Discharge: Condition at Discharge: Condition at discharge stable, patient tolerated the procedure well and had no complications. LOUISE ACOSTA MD Nov 02, 2021 09:24
--- NOTE | 2021-11-02 09:25 | PDOC4 ---
Procedure Note: ICD 10 Code: ICD 10 Code: M54.12 M50.30 Procedure Note: Patient extended for cervical epidural steroid injection with fluoroscopic guidance. Risks were discussed including but not limited to: Bleeding, infection, possibility of epidural hematoma and subsequent neurological compromise, dural puncture, headaches, spinal cord and/or nerve damage, side effects of steroid medication, and poor results regarding pain control. Patient understands and wished to proceed. Procedure cervical epidural steroid injection at the C6-7 level, using local anesthetic under sterile prep and drape using C-arm fluoroscopic guidance under local anesthesia medications injected ;120 mg Depo-Medrol +5 mL normal saline and 2 mL contrast; condition at discharge is stable patient tolerated procedure well. and had no complications LOUISE ACOSTA MD Nov 02, 2021 09:25
== END | disposition home or self-care (01) ==
LOC: PNCL 08:25
PROVIDERS: ATTEND Anesthesiology
DX: M50.10 Cervical disc disorder with radiculopathy, unspecified cervical region (principal); M51.16 Intervertebral disc disorders with radiculopathy, lumbar region; M96.1 Postlaminectomy syndrome, not elsewhere classified; M47.26 Other spondylosis with radiculopathy, lumbar region; J44.9 Chronic obstructive pulmonary disease, unspecified; K21.9 Gastro-esophageal reflux disease without esophagitis; M19.90 Unspecified osteoarthritis, unspecified site; F41.9 Anxiety disorder, unspecified; F32.9 Major depressive disorder, single episode, unspecified; N40.0 Benign prostatic hyperplasia without lower urinary tract symptoms; Z79.899 Other long term (current) drug therapy; Z98.890 Other specified postprocedural states; Z87.891 Personal history of nicotine dependence; Z72.89 Other problems related to lifestyle; Z88.0 Allergy status to penicillin; Z88.8 Allergy status to other drugs, medicaments and biological substances
CPT/HCPCS: 62321; J1030; J1040; Q9965

== ENCOUNTER → 2021-11-16 | Outpatient (CLI) | payer MEDICARE ==
[2021-02-15 09:23] VITALS: BP 151/72
--- NOTE | 2021-11-09 09:03 | FMN ---
PT PROBLEMS Correction to date of visit 11/02/2021, patient's history of present illness states patient was here last February 2012, should be correction February 2021. LOUISE ACOSTA MD Nov 09, 2021 09:03
--- NOTE | 2021-11-16 09:00 | PDOC ---
Progress Note - Pain Clinic Date of Service: DOS: DATE: 11/16/21 TIME: 08:57 Diagnosis: Dx: Cervical radiculopathy with cervical degenerative disease Lumbar radiculopathy lumbar degenerative disease lumbar spondylosis with post lumbar laminectomy syndrome Myofascial pain History or Present Illness: HPI: 66-year-old male returns for follow-up status post cervical epidural steroid injection x1. Patient reports about 75% improvement since the injection but his chief complaint today is low back and bilateral lower extremity pain somewhat worse on the left than the right but present bilaterally posterior gluteus posterior hips and into the lower extremities bilaterally patient reports has become much worse since his last visit and his neck and shoulder is doing much better he is having increased walking and increased activity which does cause increased pain in the low back and the lower extremities again worse on the left side patient rates as a 10 on scale 10 at all times average worst and least over the past week and a 10 today describes aching sharp dull tight shooting cramping stabbing burning tingling radiating constant and severe patient which is tender to the touch in the low back also some pain radiating under his right armpit which is separate. Patient reports his back feels "swollen" patient reports no loss of motor function but significant difficulty with activity walking standing is keeping him awake at night as well. Patient reports no bowel or bladder incontinence. Physical Exam: VS: Blood pressure 111/69 pulse 50 respirations 18 temperature 97 point determinate weight is 132 pounds PE: PHYSICAL EXAMINATION: GENERAL: The patient is awake, alert, oriented, appropriate, very pleasant demeanor HEENT: Shows normocephalic, atraumatic. Extraocular movements are intact and symmetrical. Oral cavity: Mucous membranes moist and pink. Dentition is intact. NECK: Shows anterior throat supple without palpable lymphadenopathy noted. Swallow reflex symmetrical. CHEST: Shows normal on inspection. Breath sounds are clear bilaterally. HEART: Shows S1, S2 clear. No murmurs auscultated. ABDOMEN: Soft, nontender, nondistended. No palpable organomegaly is noted. BACK: Shows spine grossly in the midline. Normal-appearing cervical lordotic curvature. There is increased thoracic kyphosis, some flattening of the lumbar lordotic curvature with well-healed midline surgical scar. Lumbar paraspinous muscles show symmetrical on inspection, on palpation shows some moderate tenderness diffusely throughout the upper, middle and lower distribution of the paraspinous muscles without specific trigger points, without radiation of pain. The patient has good rotational motion of the lumbar spine, both laterally as well as extension and flexion without significant difficulty. EXTREMITIES: Lower extremities show deep tendon reflexes 2+ in the patellar and tendo calcaneus tendons. Motor exam is 5 on a scale of 5 with right dorsiflexion, extension, quadriceps and hamstring flexion and 4/5 on the left. Peripheral pulses are 1+ posterior tibial. No peripheral edema is noted bilaterally. Lower extremities are warm and dry. Upper extremity show deep tendon reflexes 2+ in the bicep triceps tendons, motor exam strong with 5-5 principal mechanical engineer strength on the left and 4-5 on the right peripheral pulses are 2+ radial. SKIN: Shows warm and dry, good turgor. No edema. No sores, rashes or bruising throughout. Procedure: Procedure: Options were discussed with the patient. Patient's old chart was reviewed his current medication regimen updated current review of systems updated today as well. We will proceed with a lumbar epidural steroid injection today with fluoroscopic guidance. Risks were discussed including but not limited to: Bleed ing, infection, possibility of epidural hematoma and subsequent neurological compromise, dural puncture, headaches, spinal cord and/or nerve damage, side effects of steroid medication, and poor results regarding pain control. Patient understands and wished to proceed. Patient will return to the clinic in approximate 2 weeks for follow-up, was counseled as return appointment, activity level, and side effect to be aware of. Medication Injected: Med Injected: Procedure is lumbar epidural steroid injection under local anesthetic using sterile prep and drape at the L4-5 level using C-arm fluoroscopic guidance in both AP and lateral views medications injected is 120 mg Depo-Medrol +10mL preservative-free normal saline and 2 mL contrast- condition at discharge is stable patient tolerated procedure well had no complications. Condition at Discharge: Condition at Discharge: Condition at discharge stable, patient tolerated procedure well and had no compl ications. LOUISE ACOSTA MD Nov 16, 2021 09:00
--- NOTE | 2021-11-16 09:01 | PDOC4 ---
Procedure Note: ICD 10 Code: ICD 10 Code: M54.16 M51.36 M 96.1 Procedure Note: Patient was consented for lumbar epidural steroid injection with fluoroscopic guidance. Risks were discussed including but not limited to: Bleeding, infection, possibility of epidural hematoma and subsequent neurological compromise, dural puncture, headaches, spinal cord and/or nerve damage, side effects of steroid medication, and poor results regarding pain control. Patient understands and wished to proceed. Procedure is lumbar epidural steroid injection under local anesthetic using sterile prep and drape at the L4-5 level using C-arm fluoroscopic guidance in both AP and lateral views medications injected is 120 mg Depo-Medrol +10mL preservative-free normal saline and 2 mL contrast- condition at discharge is stable patient tolerated procedure well had no complications. LOUISE ACOSTA MD Nov 16, 2021 09:01
== END | disposition home or self-care (01) ==
LOC: PNCL 08:17
PROVIDERS: ATTEND Anesthesiology
DX: M51.16 Intervertebral disc disorders with radiculopathy, lumbar region (principal); M47.26 Other spondylosis with radiculopathy, lumbar region; M96.1 Postlaminectomy syndrome, not elsewhere classified; M79.18 Myalgia, other site; M50.10 Cervical disc disorder with radiculopathy, unspecified cervical region; J44.9 Chronic obstructive pulmonary disease, unspecified; K21.9 Gastro-esophageal reflux disease without esophagitis; M19.90 Unspecified osteoarthritis, unspecified site; F41.9 Anxiety disorder, unspecified; F32.9 Major depressive disorder, single episode, unspecified; N40.0 Benign prostatic hyperplasia without lower urinary tract symptoms; Z87.891 Personal history of nicotine dependence; Z79.899 Other long term (current) drug therapy; Z98.890 Other specified postprocedural states; Z88.0 Allergy status to penicillin; Z88.8 Allergy status to other drugs, medicaments and biological substances
CPT/HCPCS: 62323; J1030; J1040; Q9965

== ENCOUNTER 2021-11-28 12:11 | Emergency (ER) | payer MEDICARE ==
[~2021-11-28] VITALS: Ht 172.7 cm; Wt 62.3 kg
[~2021-11-28 12:11] MED LIST changes: -IOHEXOL 180 MG/ML 10 ML VIAL. ONE; -methylPREDNISolone ACETATE 40 MG/ML VIAL. ONE; -methylPREDNISolone ACETATE 80 MG/ML VIAL. ONE
[2021-11-28 13:44] VITALS: BP 110/28
--- NOTE | 2021-11-28 17:42 | PHYS DOC ---
Past Medical History Past Medical History: Constipation, Diverticulitis Additional Past Medical Histor: colon problems, dysphonia (BJ SRINIVASAN MD) Past Surgical History: No Surgical History (BJ SRINIVASAN MD) General Adult EDM: Chief Complaint: ABDOMINAL PAIN HPI: HPI: Patient is a 66 year old male with history of diverticulitis, constipation, dysphonia who presents with abdominal discomfort and increased constipation. Patient states that he has been having smaller bowel movements over the past several years, but this has been become much more pronounced over the past 2 weeks. He has had intermittent left lower quadrant pain. Does have a history of diverticulitis. Denies any loose stools, fever, chills. No nausea or vomiting. Has had 4 small stools today after doubling his MiraLAX on the insistence of his primary care physician. He was seen at [facility] primary care, reportedly had a plain film of his abdomen performed, and was directed to the emergency department. He is unsure what was seen on the plain film and insist that we were forwarded paperwork, although no staff has been able to find paperwork from his primary care office. States that he has had an EGD last year, colonoscopy the year before that he has had work-up with CTs and ultrasound of his abdomen that have recently been negative. I called Dr. Leone office and was transferred for more information, but no one picked up after several minutes. (BJ SRINIVASAN MD) Review of Systems: Review of Systems: Constitutional: Denies fever or chills. [] Eyes: Denies change in visual acuity. [] HENT: Denies nasal congestion or sore throat. [] Respiratory: Denies cough or shortness of breath. [] Cardiovascular: Denies chest pain or edema. [] GI: Reports abdominal discomfort and constipation. Denies nausea, vomiting, bloody stools or diarrhea. [] Musculoskeletal: Denies back pain or joint pain. [] Integument: Denies rash. [] Neurologic: Denies headache, focal weakness or sensory changes. [] Psychiatric: Denies depression or anxiety. [] (BJ SRINIVASAN MD) Heart Score: C/O Chest Pain: No (BJ SRINIVASAN MD) Allergies: Allergies: Allergies Coded Allergies Type Severity Reaction Last Updated Verified Penicillins Allergy Intermediate 02/15/21 Yes hydroquinone Allergy Intermediate 02/15/21 Yes (BJ SRINIVASAN MD) Physical Exam: PE: Constitutional: Well developed, well nourished, no acute distress, non-toxic appearance. Frequently pauses speech and grabs his throat which he reports is due to his dysphonia [] Neck: Normal range of motion, no tenderness, supple, no stridor. [] Cardiovascular:Heart rate regular rhythm, no murmur [] Lungs & Thorax: Bilateral breath sounds clear to auscultation [] Abdomen: Focal left lower quadrant tenderness with mild guarding. Soft, nonrigid. Skin: Warm, dry, no erythema, no rash. [] Back: No tenderness, no CVA tenderness. [] Extremities: No tenderness, no cyanosis, no clubbing, ROM intact, no edema. [] Neurologic: Alert and oriented X 3, normal motor function, normal sensory fu nction, no focal deficits noted. [] Psychologic: Affect normal, judgement normal, mood normal. [] (BJ SRINIVASAN MD) PE: Constitutional: Well developed, well nourished, no acute distress, non-toxic ap pearance HENT: Normocephalic, atraumatic Eyes: Conjunctiva normal, no discharge Neck: Normal range of motion, no tenderness, supple Lungs & Thorax: No respiratory distress, equal chest rise and fall Abdomen: Soft, mild left sided tenderness, no guarding/rebound tenderness/distention Skin: Warm, dry, no erythema, no rash Extremities: No tenderness, no edema Neurologic: Alert and oriented X 3, no focal deficits noted Psychologic: Affect normal, judgment normal (ALIVIA LAGOS DO) Current Patient Data: Vital Signs: Vital Signs Date Time Temp Pulse Resp B/P (MAP) Pulse Ox O2 Delivery O2 Flow Rate FiO2 11/28/21 13:44 97.7 51 10 110/28 (55) 99 Room Air 97.7 (BJ SRINIVASAN MD) EKG: EKG: [] (BJ SRINIVASAN MD) Radiology/Procedures: Radiology/Procedures: [] (BJ SRINIVASAN MD) Radiology/Procedures: PROCEDURE: CT ABD PELV W/ IV CONTRST ONLY PQRS Compliance Statement: One or more of the following individualized dose reduction techniques were utilized for this examination: 1. Automated exposure control 2. Adjustment of the mA and/or kV according to patient size 3. Use of iterative reconstruction technique CT ABDOMEN+PELVIS W 11/28/2021 6:08 PM Indication: Left lower quadrant pain, constipation COMPARISON: CT abdomen/pelvis 07/25/2021. TECHNIQUE: Multiple axial CT images of the abdomen and pelvis were obtained after intravenous demonstration of 75 cc Omnipaque 300. Coronal and sagittal reformats are provided. FINDINGS: There is 4 mm solid noncalcified pulmonary nodule in the lateral right lower lobe (series 2, image 7), stable from 07/25/2021. Heart size within normal limits. Three-vessel coronary vascular calcifications are present. There is a 1.2 cm cyst in the right hepatic lobe. No suspicious hepatic lesion. Calcifications within the spleen suggest sequela of prior granulomatous disease. There is a left adrenal nodule measuring 1.5 cm (series 2, image 17). Findings are stable from 07/25/2021. Pancreas and gallbladder are normal in appearance. Abdominal aorta is normal in course and caliber. Dense calcified atheromatous plaque is identified throughout the abdominal aorta. There is no logical enlarged lymph nodes in abdomen and pelvis. There is no free fluid or free intraperitoneal air. Subcentimeter simple renal cortical cysts are identified. 3 mm nodular contact us in interpolar right kidney. No hydronephrosis or suspicious renal mass. Mild rectal distention with gas measuring up to 6.9 cm. There is focal inflammation identified along the proximal aspect of the left colon (series 2, image 22). No definite colonic wall thickening. Appendix is not definitively visualized. No pericecal inflammatory changes are identified. Moderate amount stool noted throughout colon. Bladder is within normal limits given degree of distention. No suspicious pelvic mass. No suspicious osseous abnormality is identified. IMPRESSION: 1. Mild inflammation is identified along the proximal aspect of the left colon. No definite wall thickening is identified involving the colon. Consideration may be given for epiploic appendagitis vs omental infarct. 3 month follow-up CT abdomen/pelvis could be of benefit to assess resolution. 2. No bowel obstruction or inflammation. Moderate amount stool noted throughout the colon. 3. Stable left adrenal nodule which remains indeterminate. 4. Stable 4 mm solid noncalcified pulmonary nodule in the right lower lobe. Electronically signed by: Radha Goyal MD (11/28/2021 6:36 PM) [facility] (ALIVIA LAGOS DO) Course & Med Decision Making: Course & Med Decision Making Pertinent Labs and Imaging studies reviewed. (See chart for details) Patient is 66-year-old male with history of diverticulitis, chronic constipation, dysphonia who presents with decreased stool output and abdominal discomfort worsening over the past 2 weeks. He has had extensive GI work-up including colonoscopy, EGD, CT scans over the past 2 years, but insists that this is different. Reportedly had an outpatient x-ray today, that is unavailable for my review. He states he was told to report to the emergency department after obtaining the x-ray earlier today. On exam he does have focal left lower quadrant tenderness, but is overall well-appearing Will obtain labs including CBC, CMP, UA, and a CT of the abdomen/pelvis for further work up. DDx includes but is not limited uncomplicated constipation, partial sbo, colonic mass, diverticulitis, colitis. Will be signed out to oncoming provider with work up pending. 174 (BJ SRINIVASAN MD) Course & Med Decision Making 1800- Sign out received from Dr. Srinivasan for patient with abdominal pain and concern for constipation. Labs and CT imaging pending at time of sign out. Labs reviewed. CT abd/pelvis with nonspecific mild signs of inflammation to proximal colon with possible epiploic appendagitis versus omental infarct and notation of moderate constipation. Patient seen and evaluated by myself. Patient stable for discharge with outpatient follow-up with PCP/GI. Discussed findings and plan with patient, who acknowledges understanding and agreement. (ALIVIA LAGOS DO) Dragon Disclaimer: Dragon Disclaimer: This electronic medical record was generated, in whole or in part, using a voice recognition dictation system. (BJ SRINIVASAN MD) Departure Departure Impression: Primary Impression: Abdominal pain Qualified Codes: R10.32 - Left lower quadrant pain Additional Impression: Constipation Qualified Codes: K59.00 - Constipation, unspecified Disposition: HOME / SELF CARE / HOMELESS Condition: STABLE Referrals: HAZEL LEONE MD (PCP) ALIVIA DAMON MD Patient Instructions: Abdominal Pain (Nonspecific), Constipation, Adult, [id number] Additional Instructions: Increase fluid hydration. Scripts Sennosides/Docusate Sodium (Colace 2-in-1 Tablet) 1 Each Tablet 1 TAB PO BID PRN for CONSTIPATION, #30 TAB 0 Refills Prov: ALIVIA LAGOS DO 11/28/21 BJ SRINIVASAN MD Nov 28, 2021 17:41 ALIVIA LAGOS DO Nov 28, 2021 19:23
[2021-11-28 17:46] LABS: BILIRUBIN,URINE NEGATIVE (NEG); CLARITY,URINE CLEAR; COLOR,URINE YELLOW; NITRITE,URINE NEGATIVE (NEG); PROTEIN,URINE NEGATIVE (NEG-TRACE); UROBILINOGEN,URINE 0.2 mg/dL (0.2 mg/dL)
[2021-11-28 17:47] LABS: BASO % 1 % (0-3); EOS # 0.1 x10^3/uL (0.0-0.7); EOS % 2 % (0-3); HEMATOCRIT 39.1 % (39.0-53.0); HEMOGLOBIN 13.7 g/dL (13.0-17.5); LYMPH # 1.6 x10^3/uL (1.0-4.8); LYMPH % 33 % (24-48); MEAN CORPUSCULAR HEMOGLOBIN 31 pg (25-35); MEAN CORPUSCULAR HGB CONC 35 g/dL (31-37); MEAN CORPUSCULAR VOLUME 90 fL (79-100); MONO # 0.5 x10^3/uL (0.0-1.1); MONO % 11 % (0-9); NEUT # 2.5 x10^3/uL (1.8-7.7); NEUT % 53 % (31-73); PLATELET COUNT 271 x10^3/uL (140-400); RED BLOOD COUNT 4.37 x10^6/uL (4.30-5.70); RED CELL DISTRIBUTION WIDTH 13.9 % (11.5-14.5); WHITE BLOOD COUNT 4.7 x10^3/uL (4.0-11.0)
[2021-11-28 18:01] LABS: CALCIUM 8.5 mg/dL (8.5-10.1); CREATININE 0.8 mg/dL (0.7-1.3); GFR 96.1; POTASSIUM 3.4 mmol/L (3.5-5.1)
[2021-11-28 18:03] LABS: BACTERIA,URINE FEW /HPF (0-FEW); RBC,URINE 0 /HPF (0-2); WBC,URINE OCC /HPF (0-4)
[2021-11-28 18:07] LABS: ALBUMIN 3.5 g/dL (3.4-5.0); ALBUMIN/GLOBULIN RATIO 1.2 (1.0-1.7); TOTAL BILIRUBIN 0.5 mg/dL (0.2-1.0); TOTAL PROTEIN 6.5 g/dL (6.4-8.2)
[2021-11-28] MEDS: IOHEXOL 300 MG/ML 100ML VIAL. IV ONE (18:14)
[2021-11-28] MEDS ORDERED: CONTRAST GIVEN. MC PRN (18:15)
--- NOTE | 2021-11-28 18:38 | RAD ---
PQRS Compliance Statement: One or more of the following individualized dose reduction techniques were utilized for this examinat ion: 1. Automated exposure control 2. Adjustment of the mA and/or kV according to patient size 3. Use of iterative reconstruction technique CT ABDOMEN+PELVIS W 11/28/2021 6:08 PM Indication: Left lower quadrant pain, constipation COMPARISON: CT abdomen/pelvis 07/25/2021. TECHNIQUE: Multiple axial CT images of the abdomen and pelvis were obtained after intravenous demonst ration of 75 cc Omnipaque 300. Coronal and sagittal reformats are provided. FINDINGS: There is 4 mm solid noncalcified pulmonary nodule in the lateral right lower lobe (series 2, image 7) , stable from 07/25/2021. Heart size within normal limits. Three-vessel coronary vascular calcification s are present. There is a 1.2 cm cyst in the right hepatic lobe. No suspicious hepatic lesion. Calcifications within the spleen suggest sequela of prior granulomatous disease. There is a left adrenal nodule measuring 1.5 cm (series 2, image 17). Findings are stable from 07/25/2021. Pancreas and gallbladder are normal i n appearance. Abdominal aorta is normal in course and caliber. Dense calcified atheromatous plaque is identified th roughout the abdominal aorta. There is no logical enlarged lymph nodes in abdomen and pelvis. There i s no free fluid or free intraperitoneal air. Subcentimeter simple renal cortical cysts are identified. 3 mm nodular contact us in interpolar right kidney. No hydronephrosis or suspicious renal mass. Mild rectal distention with gas measuring up to 6.9 cm. There is focal inflammation identified along the proximal aspect of the left colon (series 2, image 22). No definite colonic wall thickening. Appe ndix is not definitively visualized. No pericecal inflammatory changes are identified. Moderate amoun t stool noted throughout colon. Bladder is within normal limits given degree of distention. No suspicious pelvic mass. No suspicious osseous abnormality is identified. IMPRESSION: 1. Mild inflammation is identified along the proximal aspect of the left colon. No definite wall thic kening is identified involving the colon. Consideration may be given for epiploic appendagitis vs ome ntal infarct. 3 month follow-up CT abdomen/pelvis could be of benefit to assess resolution. 2. No bowel obstruction or inflammation. Moderate amount stool noted throughout the colon. 3. Stable left adrenal nodule which remains indeterminate. 4. Stable 4 mm solid noncalcified pulmonary nodule in the right lower lobe. Electronically signed by: Radha Goyal MD (11/28/2021 6:36 PM) [facility]
[2021-11-28] MEDS ORDERED: SENN-121 PO (19:44)
== END 2021-11-28 19:55 | disposition home or self-care (01) ==
LOC: ER 12:11
DX: K59.00 Constipation, unspecified (principal); Z88.0 Allergy status to penicillin; Z88.8 Allergy status to other drugs, medicaments and biological substances
CPT/HCPCS: 36415; 74177; 80053; 81001; 85025; 99285; Q9967

== ENCOUNTER → 2022-01-15 | Day surgery (SDC) | payer MEDICARE ==
[~2022-01-15] VITALS: Ht 172.7 cm; Wt 59.5 kg
[~2022-01-15] MED LIST changes: +DULO30CA2 PO; +LIDOCAINE 2% PF 5 ML VIAL. ONE; +PROPOFOL 10 MG/ML (20ML) VIAL. IV ONE; +SENN-121 PO
[2022-01-15 12:49] VITALS: BP 137/69
--- NOTE | 2022-01-15 13:08 | PDOC4 ---
PROCEDURE Procedure EGD;/biopsies/dilation Indication: Dysphagia Meds: per anesthesia Findings: E--Grade A-B reflux at 42cm. G--Mild pre-pyloric striped erythema, biopsied. D--Normal to second portion. --Dilated with 52F Finch w/o resistance. Joby. well. IMP: GERD Antral erythema. REC: Omeprazole 40mg daily. Await path. Resume other meds, diet. F/u with me in 2 weeks. ALIVIA DAMON MD Jan 15, 2022 13:08
[2022-01-15 13:25] VITALS: BP 136/67
--- NOTE | 2022-01-18 19:07 | PATHOLOGY ---
[facility] Accession Number: [id number] . 01 Material submitted: . stomach - GASTRIC ANTRUM BIOPSY . 01 Clinical history: . DYSPHAGIA EGD . 02 Diagnosis: Stomach "antrum biopsy": - Gastric oxyntic mucosa with features of reactive gastropathy and background mild chronic inflammation. - Negative for active inflammation, intestinal metaplasia, dysplasia and malignancy. - Negative for Helicobacter pylori. (AMBROSIO:lauri; 01/17/2022) MBR 01/18/20222 Local . 02 Electronically signed: . Haresh Rodriges MD, Pathologist NPI- [id number] . 01 Gross description: . The specimen is received in formalin, labeled "Delich, Forrest, gastric antrum BX". Received are 2 segments of pale love tissue measuring 0.3 and 2.4 cm in maximum dimensions. The specimen is entirely submitted in cassette A1. ([facility]; 01/15/2022) NRI/NRI 01/15/20222031 Local . 02 Microscopic: . Immunohistochemical stain results (properly controlled): Helicobacter pylori (A1) - negative for organisms. (AMBROSIO:lauri; 01/17/2022) . 02 Pathologist provided ICD-10: K31.9, K29.50 . 02 CPT . 022353, [id number] Specimen Comment: A courtesy copy of this report has been sent to [phone] Specimen Comment: [id number], Specimen Comment: Report sent to , DR PANTOJA / DR VALADEZ Specimen Comment: A duplicate report has been generated due to demographic updates. Performed at: [address], [place] [id number] MD Zackery Kam MD Phone: [phone] Performed at: [address] [id number] MD Florentino Bolton MD Phone: [phone]
== END | disposition home or self-care (01) ==
LOC: ENDOS 12:13
PROVIDERS: ATTEND Internal Medicine Gastroenterology
DX: R13.10 Dysphagia, unspecified (principal); K29.50 Unspecified chronic gastritis without bleeding; K31.89 Other diseases of stomach and duodenum; K21.9 Gastro-esophageal reflux disease without esophagitis; J44.9 Chronic obstructive pulmonary disease, unspecified; M19.90 Unspecified osteoarthritis, unspecified site; N40.0 Benign prostatic hyperplasia without lower urinary tract symptoms; F41.9 Anxiety disorder, unspecified; F32.9 Major depressive disorder, single episode, unspecified; Z79.899 Other long term (current) drug therapy; Z98.890 Other specified postprocedural states; Z87.891 Personal history of nicotine dependence; Z88.0 Allergy status to penicillin; Z88.8 Allergy status to other drugs, medicaments and biological substances
CPT/HCPCS: 43239; 43450; J2704; 88305; 88342

== ENCOUNTER → 2022-04-05 | Outpatient (CLI) | payer MEDICARE ==
[2022-01-15 13:25] VITALS: BP 136/67
[~2022-04-05] MED LIST changes: -LIDOCAINE 2% PF 5 ML VIAL. ONE; -PROPOFOL 10 MG/ML (20ML) VIAL. IV ONE
--- NOTE | 2022-04-05 09:40 | PDOC ---
Progress Note - Pain Clinic Date of Service: DOS: DATE: 04/05/22 TIME: 09:36 Diagnosis: Dx: Cervical radiculopathy cervical degenerative disc disease Lumbar radiculopathy lumbar degenerative disease and lumbar spondylosis with lumbar postlaminectomy syndrome History or Present Illness: HPI: 67-year-old male returns last seen November 16, 2021 patient had lumbar epidural steroid injection with good results patient reports about 75% improvement in the low back and left lower extremity patient reports pain returning down the low back and left leg his chief complaint is of pain in the neck and the right upper extremity with pain radiating to the right arm especially in the thumb and first and second fingers patient reports is much worse with repetitive motions walking swinging his arm to the side reaching over his head with his left arm and difficulty with sleeping some nights but most nights he can's position himself on the left side and get some restful sleep patient reports he is under going physical therapy currently for the neck and shoulders which is helping but still has significant pain in the neck and right upper extremity. Patient reports pain is a 10 on scale 10 is worse over the past week 8-9 on average and 8-9 at its least is an 8 today. Patient reports no loss of motor function with significant fatigability of the left lower extremity as well as the right arm with all activity. Patient describes pain as aching sharp dull tight shooting tingling burning cramping stabbing radiating constant can be severe in the arm and the leg as well as the neck and the low back. Patient reports no bowel or bladder incontinence. Physical Exam: VS: Blood pressure is 125/66 pulse 50 respirations are 18 temperature is 98.2 F height 5 feet 8 inches weight is 135 pounds. PE: PHYSICAL EXAMINATION: GENERAL: The patient is awake, alert, oriented, appropriate, very pleasant in demeanor HEENT: Shows normocephalic, atraumatic. Extraocular movements are intact and symmetrical. Oral cavity: Mucous membranes moist and pink. NECK: Shows anterior throat supple without palpable lymphadenopathy noted. Swallow reflex symmetrical. CHEST: Shows normal on inspection. Breath sounds are clear bilaterally, no rales rhonchi or wheezes auscultated. HEART: Shows S1, S2 clear. No murmurs auscultated. ABDOMEN: Soft, nontender, nondistended. No palpable organomegaly is noted. BACK: Shows spine grossly in the midline. Normal-appearing cervical lordotic curvature. Cervical paraspinous muscles show symmetrical with inspection on palpation some moderate tenderness diffusely in the inferior aspect cervical paraspinous muscular more on the right than the left but without specific trigger points or atrophy hypertrophy. Patient shows full rotation motion c ervical spine both laterally as well as extension flexion without significant limitation. There is mildly increased thoracic kyphosis, some flattening of the lumbar lordotic curvature with well-healed surgical scar noted. Lumbar paraspinous muscles show symmetrical on inspection, on palpation shows some moderate tenderness diffusely throughout the upper, middle and lower distribu tion of the paraspinous muscles, without specific trigger points, without radiation of pain. The patient has good rotational motion of the lumbar spine, both laterally as well as extension and flexion without significant difficulty. No tenderness over the spinous processes, sacrum or sacroiliac regions. EXTREMITIES: Lower extremities show deep tendon reflexes 2+ in the patellar and tendo calcaneus tendons. Motor exam is 5 on a scale of 5 with right dorsiflexion, extension, quadriceps and hamstring flexion and 4/5 on the left. Peripheral pulses are 1+ posterior tibial. No peripheral edema is noted bilaterally. Lower extremities are warm and dry to touch, equal in color and appearance. Upper extremities show deep tendon reflexes at 2+ in the bicep tricep tendons, motor exam is 4-5 on the right and 5 out of 5 on the left with cooler room worker strength bicep and tricep flexion. SKIN: Shows warm and dry, good turgor. No edema. No sores, rashes or bruising throughout. Procedure: Procedure: Options were discussed with the patient. Patient's old chart was reviewed his current medication regimen updated current review of systems updated today as well. We will have patient complete physical therapy as he feels it is beneficial at this time with about a 40% improvement from the physical therapy along with once this is completed we will have patient return for reevaluation at that time. Medication Injected: Med Injected: None Condition at Discharge: Condition at Discharge: Condition at discharge is stable. LOUISE ACOSTA MD April 05, 2022 09:40
== END | disposition home or self-care (01) ==
LOC: PNCL 08:38
PROVIDERS: ATTEND Anesthesiology
DX: M50.10 Cervical disc disorder with radiculopathy, unspecified cervical region (principal); M51.16 Intervertebral disc disorders with radiculopathy, lumbar region; M47.26 Other spondylosis with radiculopathy, lumbar region; M96.1 Postlaminectomy syndrome, not elsewhere classified; J44.9 Chronic obstructive pulmonary disease, unspecified; K21.9 Gastro-esophageal reflux disease without esophagitis; M19.90 Unspecified osteoarthritis, unspecified site; F41.9 Anxiety disorder, unspecified; F32.9 Major depressive disorder, single episode, unspecified; N40.0 Benign prostatic hyperplasia without lower urinary tract symptoms; Z79.899 Other long term (current) drug therapy; Z98.890 Other specified postprocedural states; Z88.0 Allergy status to penicillin; Z88.8 Allergy status to other drugs, medicaments and biological substances
CPT/HCPCS: 99212; G0463